=== PATIENT | female | born 1985 | race Caucasian/White ===

== ENCOUNTER 2019-08-13 12:26 | Emergency (ER) | payer OTHER ==
[2019-08-13 12:48] VITALS: BP 149/86
--- NOTE | 2019-08-13 13:31 | UC ---
Throat Pain/Nasal Jesus HPI - HPI Summary HPI Summary: Sore throat since yesterday. - History of Current Complaint Chief Complaint: UCRespiratory Stated Complaint: SORE THROAT Time Seen by Provider: 08/13/19 12:55 Hx Obtained From: Patient Hx Last Menstrual Period: 07/31/2019 ?: No Onset/Duration: Gradual Onset Severity: Mild Pain Intensity: 4 Cough: None - Allergies/Home Medications Allergies/Adverse Reactions: Allergies Allergy/AdvReac Type Severity Reaction Status Date / Time cefprozil [From Cefzil] Allergy Hives Verified 08/13/19 12:42 erythromycin base Allergy Hives Verified 08/13/19 12:42 sulfamethoxazole Allergy Hives Verified 08/13/19 12:42 [From Bactrim] trimethoprim [From Bactrim] Allergy Hives Verified 08/13/19 12:42 Home Medications: Home Medications Cyanocobalamin TAB* [Vitamin B12 TAB*] 500 mcg PO DAILY 08/13/19 [History Confirmed 08/13/19] Eladel Cream 08/13/19 [History] Ibuprofen 400 mg PO Q6H PRN 08/13/19 [History Confirmed 08/13/19] Multivitamin [Multivitamins] 1 cap PO DAILY 08/13/19 [History Confirmed 08/13/19 ] PMH/Surg Hx/FS Hx/Imm Hx Previously Healthy: Yes - Surgical History Surgical History: Yes Surgery Procedure, Year, and Place: 1996 tonsillectomy. 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 - Family History Known Family History: Positive: Non-Contributory - Social History Lives: With Family Alcohol Use: None Substance Use Type: Marijuana Smoking Status (MU): Never Smoked Tobacco Review of Systems All Other Systems Reviewed And Are Negative: Yes ENT: Positive: Sore Throat Is Patient Immunocompromised?: No Physical Exam Triage Information Reviewed: Yes Appearance: Well-Appearing, No Pain Distress, Well-Nourished Vital Signs: Initial Vital Signs Temp 99.0 F 08/13/19 12:44 Pulse 78 08/13/19 12:44 Resp 18 08/13/19 12:44 BP 149/86 08/13/19 12:44 Pulse Ox 100 08/13/19 12:44 Vital Signs Reviewed: Yes Eyes: Positive: Conjunctiva Clear ENT: Positive: Pharyngeal erythema - Uvula with erythema and mildly enlarged, Uvula midline, Other - Left TM peasrly landis with good landmarks and light reflex , Cerumen impaction right ear canal Neck: Positive: Supple, Nontender, Enlarged Nodes @ - Mild right tonsillar lymph node enlargement Respiratory: Positive: Lungs clear, Normal breath sounds, No respiratory distress, No accessory muscle use Cardiovascular: Positive: RRR, No Murmur, Pulses Normal, Brisk Capillary Refill Musculoskeletal Exam: Normal Neurological Exam: Normal Psychological Exam: Normal Skin Exam: Normal Throat Pain/Nasal Course/Dx - Course Course Of Treatment: Rapid strep test: negative Pt had right cerumen impaction and I offered to do an ear lavage, to which she agreed, but then deceided she wanted to get on the road because she is traveling today and she will address that with her PCP. - Differential Dx/Diagnosis Provider Diagnosis: Pharyngitis Discharge ED - Sign-Out/Discharge Documenting (check all that apply): Patient Departure All imaging exams completed and their final reports reviewed: No Studies - Discharge Plan Condition: Good Disposition: HOME Patient Education Materials: Pharyngitis (ED) Referrals: No Primary Care Phys,NOPCP [Primary Care Provider] - Additional Instructions: Warm salt water gargles, throat lozenges for comfort. Motrin 600 mg every 8 hours as needed for pain. Follow up with your doctor if no improvement in 3-4 days - Billing Disposition and Condition Condition: GOOD Disposition: Home
== END 2019-08-13 13:54 | disposition home or self-care (01) ==
LOC: UCEAST 12:26
DX: J02.9 Acute pharyngitis, unspecified (principal); Z88.2 Allergy status to sulfonamides; Z88.1 Allergy status to other antibiotic agents
CPT/HCPCS: 87651; 99201; G0463